=== PATIENT | female | born 1990 | race Caucasian/White ===

== ENCOUNTER 2020-12-19 19:21 | Inpatient (IN) | payer OTHER ==
[~2020-12-19] VITALS: Ht 170.2 cm; Wt 61.7 kg
--- NOTE | 2020-12-19 19:59 | NUR ---
MD Kang in room to do MSE.
--- NOTE | 2020-12-19 20:10 | NUR ---
Patient is a hard stick, very difficult to start IV access on. Multiple attempts were made by myself and the charge nurse. Patient then refused any more attempts. MD Kang made aware.
[2020-12-19 20:36] LABS: HEMATOCRIT 29.3 % (31.2-41.9); MEAN CORPUSCULAR HEMOGLOBIN 29.5 uug (24.7-32.8); MEAN CORPUSCULAR VOLUME 87.1 fL (75.5-95.3); PLATELET COUNT (AUTO) 436 K/uL (179-408)
[2020-12-19 20:43] LABS: CREATININE 0.9 mg/dL (0.6-1.3); LIPASE 85 U/L (73-393); POTASSIUM 3.8 mmol/L (3.5-5.1)
[2020-12-19 20:48] LABS: BILIRUBIN,DIRECT 0.1 mg/dL (0.0-0.2); BILIRUBIN,TOTAL 0.3 mg/dL (0.2-1.0); TOTAL PROTEIN, SERUM 7.1 g/dL (6.4-8.2)
--- NOTE | 2020-12-19 21:15 | NUR ---
U/S tech in room to do U/S on patient. I did EKG at this time as well with Britni as my chaperrone.
--- NOTE | 2020-12-19 21:50 | NUR ---
Patient taken out for CT scan by tax examining technician.
[2020-12-19 21:59] LABS: *BILIRUBIN,URIN NEGATIVE (NEGATIVE); *CLARITY,URINE SLIGHTLY CLOUDY (CLEAR); *COLOR,URINE YELLOW (YELLOW); *KETONES,URINE NEGATIVE (NEGATIVE); LEUKOCYTE ESTERASE ,URINE 3+ (NEGATIVE); NITRITE, URINE POSITIVE (NEGATIVE); UGLUCOSE NEGATIVE (NEGATIVE)
[2020-12-19 22:07] LABS: *BLOOD, URINE TRACE LYSED (NEGATIVE)
[2020-12-19 22:26] LABS: BACTERIA,URINE MANY /HPF (NONE SEEN); SQUAMOUS EPITHELIAL CELL,UR MODERATE /HPF (NONE SEEN); WBC,URINE TNTC /HPF (0-3)
--- NOTE | 2020-12-19 22:28 | NUR ---
Patient requested water and juice, OK per MD Kang. HOB elevated when patient is drinking fluids to prevent aspiration.
--- NOTE | 2020-12-19 23:27 | NUR ---
Epic medical call placed, pending call back from GAS ENGINE OPERATOR Tracey Zuniga.
--- NOTE | 2020-12-19 23:40 | NUR ---
Dr. Kang on panel call with Tracey Zuniga NP.
--- NOTE | 2020-12-19 23:54 | NUR ---
Dr. Kang speaking with Dr. Loy Edouard for surgery consult.
--- NOTE | 2020-12-20 00:37 | NUR ---
Called [facility], will fax paperwork to [phone] to ER storage battery charger Oliver.
--- NOTE | 2020-12-20 00:41 | NUR ---
[facility] unable to accept patient. [facility] unable to accept patient. [facility] unable to accept patient.
--- NOTE | 2020-12-20 00:42 | NUR ---
[facility] unable to accept patient.
--- NOTE | 2020-12-20 01:23 | NUR ---
Called [facility], all hospitals are at capacity and unable to take higher level of care transfers.
--- NOTE | 2020-12-20 01:24 | NUR ---
Called [facility], no beds available.
--- NOTE | 2020-12-20 02:04 | NUR ---
Called [facility] to page Dr. Shar Mix.
--- NOTE | 2020-12-20 02:33 | NUR ---
Dr. Kang on panel call with Dr. hSar Mix.
--- NOTE | 2020-12-20 02:59 | NUR ---
Report given to Noemi AVLENTINE Tele.
[2020-12-20] MEDS ORDERED: CEFTRIAXONE 1 G VIAL IM ONE (03:00)
[2020-12-20] MEDS ORDERED: CEFTRIAXONE 1 G VIAL ONE (03:09)
[2020-12-20] MEDS ORDERED: LIDOCAINE HCL 1% 20 ML VIAL ONE (03:09)
--- NOTE | 2020-12-20 03:20 | NUR ---
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 Patient asleep during admission. Arousable to verbal and to touch. AOx4. In no acute distress. Stated she just want to sleep as she has not had any sleep for 4 days now. Denies any pain or SOB. Temp. at this time 100.8 orally. Cooling measure provided. Dr. Forbes aware and awaiting for admission order. Sinus tachy at 104/min. Pt ambulatory and supervised to the toilet. Continent of urine. Routine admission care done. Plan of care initiated. Safety measure initiated and call norris within reached.
[2020-12-20 04:46] VITALS: BP 104/59
--- NOTE | 2020-12-20 05:20 | NUR ---
Telephone Dr. Forbes, awaiting reply.
[2020-12-20] MEDS ORDERED: HYDROCODONE/APAP 5-325MG TABLET PO PRN (05:30)
[2020-12-20] MEDS ORDERED: IV NS 1000 ML 1,000 ML IV PRN (05:30)
[2020-12-20] MEDS ORDERED: ACETAMINOPHEN 325 MG TABLET PO PRN (05:30)
[2020-12-20] MEDS ORDERED: MAGNESIUM HYDROXIDE 30 ML LIQUID UDC PO PRN (05:30)
[2020-12-20] MEDS ORDERED: HYDROCODONE/APAP 10-325 MG TABLET PO PRN (05:30)
[2020-12-20] MEDS ORDERED: Z GUARD REMEDY PASTE 57 GM TUBE TOP PRN (05:30)
[2020-12-20] MEDS ORDERED: MORPHINE SULFATE 2 MG/1 ML DISP.SYRIN IV PRN (05:30)
[2020-12-20] MEDS ORDERED: ONDANSETRON 4 MG/2 ML VIAL IV PRN (05:30)
--- NOTE | 2020-12-20 06:05 | NUR ---
Latest temp 99.5 orally. Continue providing cooling measure. Tylenol 650mg given per order. Still sleepy but arousable. Appears comfortable. Needs attended to and met. Safety measure maintained and call norris within reached.
--- NOTE | 2020-12-20 06:30 | NUR ---
Sinus tachy on tele at 110/min.
[2020-12-20] MEDS ORDERED: PANTOPRAZOLE SODIUM 40 MG TABLET.DR PO SCH (07:00)
[2020-12-20] MEDS ORDERED: PIPERACILLIN SODIUM/TAZOBACTAM 4.5 G in IV DEXTROSE 5% 50 ML IV ONE ×2 (08:00→12:45)
--- NOTE | 2020-12-20 08:14 | NUR ---
Sleeping, appears comfortable. Swimming Pool Installer And Servicer followed with midline placement
[2020-12-20 12:00] VITALS: BP 92/44
--- NOTE | 2020-12-20 12:45 | NUR ---
Midline placed to LUE. IVF and Zosyn IV initiated. Explained to patient, agreeable.
[2020-12-20 16:00] VITALS: BP 100/59
--- NOTE | 2020-12-20 16:00 | NUR ---
PCR Covid test ordered, done. Placed on droplet isolation.
--- NOTE | 2020-12-20 17:33 | NUR ---
Received call from [facility] for higher level of care for peer to peer review. Dr. Phillips informed.
--- NOTE | 2020-12-20 19:12 | NUR ---
Elevated heart rate noted. Dr. Vann informed
[2020-12-20] MEDS ORDERED: PIPERACILLIN SODIUM/TAZOBACTAM 3.375 G in IV DEXTROSE 5% 100 ML IV SCH (20:00)
--- NOTE | 2020-12-20 20:03 | NUR ---
Received patient in bed alert x4. at bedside. Patient wants to leave AMA .Charge nurse and Notified. Patient signed AMA paper and all belongings taken. Midline on RT upper arm removed.
[2020-12-20 20:17] VITALS: BP 101/53
== END 2020-12-20 20:34 | disposition left against medical advice (07) | DRG 720 ==
LOC: ER 19:21 → TELE3 12-20 03:04
PROVIDERS: ADMIT Internal Medicine; ATTEND Internal Medicine
DX: A41.9 Sepsis, unspecified organism (principal); E43 Unspecified severe protein-calorie malnutrition; J18.9 Pneumonia, unspecified organism; N15.1 Renal and perinephric abscess; E87.1 Hypo-osmolality and hyponatremia; D63.8 Anemia in other chronic diseases classified elsewhere; K83.8 Other specified diseases of biliary tract; Z20.822 Contact with and (suspected) exposure to COVID-19; N13.6 Pyonephrosis; M47.896 Other spondylosis, lumbar region; V89.2XXS Person injured in unspecified motor-vehicle accident, traffic, sequela; M40.295 Other kyphosis, thoracolumbar region; B96.1 Klebsiella pneumoniae [K. pneumoniae] as the cause of diseases classified elsewhere; F11.10 Opioid abuse, uncomplicated; Z68.21 Body mass index [BMI] 21.0-21.9, adult
CPT/HCPCS: 36415; 70030-TC; 71045; 83605; 83690; 85025; 87040; 87077; 87086; 93005; A4663; G0378; J0696; J2543; J3490; J7030; J7060; U0003